=== PATIENT | male | born 1975 | race Caucasian/White ===

== ENCOUNTER 2021-03-16 12:44 | Inpatient (IN) | payer BC ==
[~2021-03-16] VITALS: Ht 177.8 cm; Wt 86.2 kg
--- NOTE | 2021-03-16 12:50 | NUR ---
at bedside for MSE at this time.
[2021-03-16 13:12] LABS: HEMATOCRIT 39.9 % (36.7-47.1); MEAN CORPUSCULAR VOLUME 83.2 fL (73.0-96.2); PLATELET COUNT (AUTO) 256 K/uL (152-348)
[2021-03-16 13:18] LABS: CREATININE 0.9 mg/dL (0.6-1.3); POTASSIUM 3.8 mmol/L (3.5-5.1)
[2021-03-16 13:24] LABS: BILIRUBIN,DIRECT 0.3 mg/dL (0.0-0.2); TOTAL PROTEIN, SERUM 7.4 g/dL (6.4-8.2)
[2021-03-16] MEDS ORDERED: IOHEXOL 300MG/ML 100 ML INFUS..BTL ONE (13:38)
[2021-03-16] MEDS ORDERED: IV NORMAL SALINE 250 ML IV ONE (13:38)
[2021-03-16] MEDS ORDERED: SWABABLE VALVE TRANSFER SET EA MC ONE (13:38)
--- NOTE | 2021-03-16 13:40 | NUR ---
Picked up for CT scan
--- NOTE | 2021-03-16 13:53 | NUR ---
Back from CT scan
--- NOTE | 2021-03-16 14:03 | NUR ---
Patient is resting comfortably in bed browsing through cellphone. Denies pain at this time.
[2021-03-16] MEDS ORDERED: levoFLOXacin 750 MG/D5W 150 ML PIGGYBACK IV ONE (14:45)
[2021-03-16] MEDS ORDERED: METRONIDAZOLE 500 MG/NS 100 ML PIGGYBACK IV ONE (14:45)
--- NOTE | 2021-03-16 14:50 | NUR ---
l/m GI. Kourtney on voicemail
[2021-03-16] MEDS ORDERED: METRONIDAZOLE 500 MG/NS 100ML 100 ML IV ONE ×2 (14:56→22:15)
[2021-03-16] MEDS ORDERED: levoFLOXacin 750MG/D5W 150 ML IV ONE (14:57)
--- NOTE | 2021-03-16 15:05 | NUR ---
COVID swab done and given to labor standards director to be brought to laboratory
--- NOTE | 2021-03-16 15:18 | NUR ---
Patient currently resting in bed. Visitor at bedside at this time. No s/s of distress or SOB noted.
[2021-03-16 15:25] LABS: HEMATOCRIT 36.8 % (36.7-47.1)
--- NOTE | 2021-03-16 15:40 | NUR ---
Patient complained of uncomfortable feeling while levaquin is infusing. Stopped medication. MD aware and at bedside at this time.
--- NOTE | 2021-03-16 15:55 | NUR ---
Report given to Matilda NDIAYE.
[2021-03-16] MEDS ORDERED: CEFTRIAXONE 1 G in IV DEXTROSE 5% 50 ML IV ONE (16:00)
[2021-03-16] MEDS ORDERED: CEFTRIAXONE /D5W 50ML IVPB **ER PYXIS IV ONE (16:09)
--- NOTE | 2021-03-16 16:30 | NUR ---
Patient transported upstairs via wheelchair to room 325
--- NOTE | 2021-03-16 16:35 | NUR ---
received from ER per w/c awake alert and oriented, mother with him, placed on telemetry- SR 78, denies of dizziness, no rectal bleeding noted at this time, some suprapubic discomfort, routine admission care rendered, informed Dr Taylor of admission
[2021-03-16 17:04] VITALS: BP 123/84
[2021-03-16] MEDS ORDERED: MAGNESIUM HYDROXIDE 30 ML LIQUID UDC PO PRN (17:45)
[2021-03-16] MEDS ORDERED: Z GUARD REMEDY PASTE 57 GM TUBE TOP PRN (17:45)
[2021-03-16] MEDS ORDERED: ZOLPIDEM 5 MG TABLET PO PRN (17:45)
[2021-03-16] MEDS ORDERED: ACETAMINOPHEN 325 MG TABLET PO PRN (17:45)
[2021-03-16] MEDS ORDERED: MORPHINE SULFATE 2 MG/1 ML DISP.SYRIN IV PRN (17:45)
[2021-03-16] MEDS ORDERED: ONDANSETRON 4 MG/2 ML VIAL IV PRN (17:45)
[2021-03-16] MEDS ORDERED: IV NS 1000 ML 1,000 ML IV PRN (17:45)
[2021-03-16] MEDS: PANTOPRAZOLE SODIUM 40 MG VIAL IV SCH (18:02)
--- NOTE | 2021-03-16 18:30 | NUR ---
resting with visitor at bedside, no distress noted, no rectal bleeding noted, needs attended and met, call light within reachd
--- NOTE | 2021-03-16 19:00 | NUR ---
Received patient in bed alert and oriented. Patient is on room air, no complaints of SOB, no signs of distress. Patient is not complaining of any pain in his abdomen at this time. No complaints of rectal bleeding. IVF 0.9% NS running @75mL/hr. Informed patient to inform me when he passes a stool so i can check for blood. Patient verbalized understanding.
[2021-03-16 20:25] VITALS: BP 113/67
--- NOTE | 2021-03-16 20:30 | NUR ---
Patient had a normal formed stool that was coated in red fresh blood. It only appears that the blood is only coating the stool.
--- NOTE | 2021-03-16 20:45 | NUR ---
Dr. Taylor in room to see patient. Informed him of the recent stool with blood. IV fluids were discontinued.
[2021-03-16] MEDS: METRONIDAZOLE 500 MG/NS 100ML 500 MG in PREMIXED 1 EACH IV SCH (22:26)
[2021-03-17 00:22] VITALS: BP 104/68
[2021-03-17 04:57] VITALS: BP 111/71
[2021-03-17] MEDS ORDERED: METRONIDAZOLE 500 MG/NS 100ML 100 ML IV ONE (05:47)
[2021-03-17] MEDS: METRONIDAZOLE 500 MG/NS 100ML 500 MG in PREMIXED 1 EACH IV SCH ×3 (06:02→21:38)
--- NOTE | 2021-03-17 07:01 | NUR ---
Patient remains A/Ox3 in bed, slept well through the night. No signs of SOB or distress. Patient had 2 more formed stools that were coated in small amounts of red blood. No complaints of pain in his abdomen. Peripheral IV remains patent. AM labs pending.
[2021-03-17 07:12] LABS: HEMATOCRIT 30.4 % (36.7-47.1); MEAN CORPUSCULAR HEMOGLOBIN 27.9 uug (23.8-33.4); MEAN CORPUSCULAR VOLUME 83.2 fL (73.0-96.2); PLATELET COUNT (AUTO) 194 K/uL (152-348)
[2021-03-17 07:31] LABS: BILIRUBIN,DIRECT 0.2 mg/dL (0.0-0.2); BILIRUBIN,TOTAL 0.9 mg/dL (0.2-1.0); CREATININE 0.9 mg/dL (0.6-1.3); MAGNESIUM 2.3 mg/dL (1.8-2.4); PHOSPHOROUS 2.6 mg/dL (2.5-4.9); POTASSIUM 3.6 mmol/L (3.5-5.1); TOTAL PROTEIN, SERUM 6.1 g/dL (6.4-8.2)
--- NOTE | 2021-03-17 07:40 | NUR ---
Patient in bed awake, alert and oriented. Denies pain. Patient had small bms last night, none yet this am. Iv is intact. No acute distress. Kept comfortable. Will continue to monitor.
[2021-03-17] MEDS: PANTOPRAZOLE SODIUM 40 MG VIAL IV SCH (08:52)
[2021-03-17 11:25] VITALS: BP 120/80
[2021-03-17] MEDS ORDERED: CEFTRIAXONE 1 G VIAL IV SCH (12:45)
[2021-03-17] MEDS ORDERED: levoFLOXacin 500 MG/D5W 500 MG in PREMIXED 1 EACH IV SCH (14:00)
[2021-03-17] MEDS ORDERED: ASPI81TA31 PO (14:10)
[2021-03-17] MEDS ORDERED: LATA2.5D2 EACHEYE (15:35)
[2021-03-17 16:00] VITALS: BP 126/84
[2021-03-17] MEDS: CEFTRIAXONE 1 G in IV DEXTROSE 5% 50 ML IV SCH (16:19)
--- NOTE | 2021-03-17 18:40 | NUR ---
Patient awake, alert and oriented x4. In no acute distress. Denies sob or pain. Diet tolerated. Denies nausea or vomiting. No bowel movement this shift. Due meds given and tolerated. Needs attended. Kept comfortable.
--- NOTE | 2021-03-17 18:50 | NUR ---
Dr. Felix in room to see patient.
--- NOTE | 2021-03-17 20:30 | NUR ---
Patient alert oriented, no sob no chest pain, no complain of pain. Patient has no bloody stool episode since this morning, no complain of suprapubic pain, cont to monitor.
[2021-03-17 20:43] VITALS: BP 116/74
[2021-03-17] MEDS ORDERED: LATANOPROST OPHT DROP 2.5 ML BOTTLE EACHEYE SCH (21:00)
[2021-03-18 00:40] VITALS: BP 103/61
[2021-03-18 05:05] VITALS: BP 127/73
[2021-03-18] MEDS: METRONIDAZOLE 500 MG/NS 100ML 500 MG in PREMIXED 1 EACH IV SCH ×2 (05:26→13:28)
[2021-03-18 06:09] LABS: HEMATOCRIT 29.4 % (36.7-47.1); MEAN CORPUSCULAR HEMOGLOBIN 28.9 uug (23.8-33.4); PLATELET COUNT (AUTO) 205 K/uL (152-348)
--- NOTE | 2021-03-18 06:47 | NUR ---
Patient alert oriented, no sob no chest pain, tele monitor sinus rhythm, no further rectal bleeding at this time. call light within reach.
--- NOTE | 2021-03-18 07:45 | NUR ---
AWAKE, ALERT AND ORIENTED SITTING UP IN BED. DENIES PAIN. SAYS HE SLEPT WELL LAST NIGHT. IV INTACT. COMFORTABLE. CONTINUE TO MONITOR.
[2021-03-18] MEDS: PANTOPRAZOLE SODIUM 40 MG VIAL IV SCH (08:59)
--- NOTE | 2021-03-18 09:04 | NUR ---
Patient said he had a bowel movement a little fragmented but no blood noted.
[2021-03-18] MEDS: CEFTRIAXONE 1 G in IV DEXTROSE 5% 50 ML IV SCH (15:58)
[2021-03-18 16:59] VITALS: BP 128/78
[2021-03-18] MEDS ORDERED: ACET325T53 PO (17:58)
[2021-03-18] MEDS ORDERED: METR500T PO (17:58)
--- NOTE | 2021-03-18 19:14 | NUR ---
Patient is for discharged to home. In no acute distress. No further bowel movement this shift. No nausea or vomiting noted. On iv atb no adverse reactions noted. Discharge instructions and teachings done, and he verbalized understanding. Prescription for medication given to patient. Skin remains intact. Belongings confirmed by patient. Patient will be picked up by family friend Jessica.
--- NOTE | 2021-03-18 19:15 | NUR ---
Patient received all his discharge papers. Waiting for lease picker. Endorsed to next shift.
--- NOTE | 2021-03-18 19:35 | NUR ---
Received pt with no signs of acute distress, denies any pain or discomfort. Removed ID band and IV access. Belongings and discharge papers are with the pt. Discharged in stable condition.
[2021-03-19] MEDS ORDERED: PANTOPRAZOLE SODIUM 40 MG TABLET.DR PO SCH (07:00)
== END 2021-03-18 19:35 | disposition home or self-care (01) | DRG 378 ==
LOC: ER 12:44 → TELE3 16:03 → MEDSURG3 03-18 10:11
PROVIDERS: ADMIT Internal Medicine; ATTEND Internal Medicine
DX: K57.21 Diverticulitis of large intestine with perforation and abscess with bleeding (principal); D62 Acute posthemorrhagic anemia; Z88.1 Allergy status to other antibiotic agents; Z88.0 Allergy status to penicillin; Z20.822 Contact with and (suspected) exposure to COVID-19; R74.01 Elevation of levels of liver transaminase levels
CPT/HCPCS: 36415; 70030-TC; 71045; 83735; 84100; 84153; 85018; 85025; 85730; 86850; 86900; 86901; 93005; A4663; C9113; G0378; J0696; J1956; J3490; J7030; J7050; J7060; Q9967